=== PATIENT | female | born 1960 | race Caucasian/White ===

== ENCOUNTER 2023-10-01 08:45 | Outpatient (OUT) | payer OTHER, SELFPAY ==
--- NOTE | 2023-10-01 09:06 | MM_ITS ---
Patient Name: KAMAR YEPEZ MR#: [id number] : 1960 Exam Date: 10/01/2023 Ordering Doctor: DR VONDA MORROW M.D. RADIOLOGY REPORT PROCEDURE: MM TOMOSYNTHESIS SCREENING BI COMPARISON: MG MAMM LT UNI W CAD DIG, 10/31/2014. MAMMO POST BIOPSY LEFT, 04/24/2014. MG MAMM CARINA DIAG W CAD DIG, 04/19/2014. MG MAMM CARINA SCRN W CAD DIG, 04/19/2013. INDICATIONS: Screening Calculator Name NCI Breast Cancer Risk Assessment Tool 5 Year Breast Cancer Risk 2.80% Lifetime Breast Cancer Risk 10.30% Personal Breast Cancer No Personal Ovarian Cancer No Treatments None Family Cancers Father with esophageal cancer at age 87; Brother with pancreatic cancer at age 78. LOCATION: [facility] BREAST COMPOSITION: The breasts are heterogeneously dense,which may obscure small masses. FINDINGS: DIAGNOSTIC CATEGORY 2--BENIGN FINDING: RIGHT BREAST: No significant suspicious finding. Scattered benign-appearing lymph nodes are present. No significant change has occurred. LEFT BREAST: No significant suspicious finding. Scattered benign-appearing lymph nodes are present. No significant change has occurred. RECOMMENDATIONS: ROUTINE MAMMOGRAM AND CLINICAL EVALUATION IN 12 MONTHS. PLEASE NOTE: A NORMAL MAMMOGRAM DOES NOT EXCLUDE THE POSSIBILITY OF BREAST CANCER. A CLINICALLY SUSPICIOUS PALPABLE LUMP SHOULD BE BIOPSIED. Dictated by: Alexsander Yepez M.D. on 10/01/2023 at 14:41 Approved by: Alexsander Yepez M.D. on 10/01/2023 at 14:49
== END 2023-10-01 08:46 | disposition home or self-care (01) ==
LOC: MAMMO 08:50
PROVIDERS: Family Provider Internal Medicine; PCP Internal Medicine; Visit Provider Internal Medicine
DX: Z12.31 Encounter for screening mammogram for malignant neoplasm of breast (principal); Z80.8 Family history of malignant neoplasm of other organs or systems
CPT/HCPCS: 77063; 77067

== ENCOUNTER 2023-11-05 07:55 | Outpatient (OUT) | payer OTHER, SELFPAY ==
--- NOTE | 2023-11-05 07:57 | XR_ITS ---
The [address] [address] Patient Name: KAMAR YEPZE MRN: [id number] date: 1960 Sex: F Assigned Patient Location: [facility] Current Patient Location: Accession/Order Number: [id number] Exam Date: 11/05/2023 08:00 Report Date: 11/08/2023 09:28 At the request of: VONDA MORROW Procedure: XR DEXA axial skeleton EXAMINATION: XR DEXA axial skeleton, 11/05/2023 8:00 AM EDT HISTORY: Estrogen deficiency E28.39 COMPARISON: None. TECHNIQUE: Dual-energy X-ray absorptiometry (DEXA) bone density study performed for the axial skeleton. FINDINGS: Bone mineral density AP spine L1-L4 measures 1.015 g/sq cm. T score -1.5. Osteopenia. Lowest bone mineral density left femoral trochanter measures 0.563 g/sq cm. T score -2.5. Osteoporosis XR/XR DEXA axial skeleton IMPRESSION: Osteoporosis. 10 year fracture risk not reported because T score at or below -2.5 Pharmacologic treatment recommendations * No uniform recommendation applies to all patients. Management plans must be individualized. * Consider initiating pharmacologic treatment in postmenopausal women and men >= 50 years of age who have the following: Primary fracture prevention: * T-score <= - 2.5 at the femoral neck, total hip, lumbar spine, 33% radius (some uncertainty with existing data) by DXA. * Low bone mass (osteopenia: T-score between - 1.0 and - 2.5) at the femoral neck or total hip by DXA with a 10-year hip fracture risk >= 3% or a 10-year major osteoporosis-related fracture risk >= 20% (i.e., clinical vertebral, hip, forearm, or proximal humerus) based on the [place]-adapted FRAXregistered model. Secondary fracture prevention: * Fracture of the hip or vertebra regardless of BMD [4, 5]. * Fracture of proximal humerus, pelvis, or distal forearm in persons with low bone mass (osteopenia: T-score between - 1.0 and - 2.5). The decision to treat should be individualized in persons with a fracture of the proximal humerus, pelvis, or distal forearm who do not have osteopenia or low BMD [12, 13]. Héctor MS, Corrine SL, Miguel KL, Ester EM, Howard KG, AJ, Tra ES. The clinician's guide to prevention and treatment of osteoporosis. Osteoporos Int. 2021;33(10):4572-6666. doi: 10.1007/r11079-965-45308-x. Epub 2021Jun 12. Erratum in: Osteoporos Int. 2021Sep 11;: PMID: [id number]; PMCID: [id number]. Electronically authenticated by: GAIL MALDONADO Date: 11/08/2023 09:28
--- OUTSIDE RECORDS SUMMARY | 2023-11-05 07:58 | XMS_ITS | CCD ---
Author Organization [facility] Inform ion Partnership [facility] Care Team Providers Care Insulation Power Unit Tender Name Role Phone VONDA MORROW Attending Unavailable VONDA MORROW Attending Unavailable Encounters Encounter Date Encounter Type Care Provider Facility Start: 10-25-2023 End: 10-25-2023 ambulatory VONDA MORROW Not Available Start: 09-23-2023 End: 09-23-2023 ambulatory VONDA MORROW Not Available Payers Date Payer Category Payer Unknown [id number] 1960 Unknown [id number] 1960 Unknown [id number] Summary Purpose Family History No Family History Records Found Advance Directives No Advanced Directives Records Found Additional Source Comments INFORMATION SOURCE (unrecogn ized section and content) DATE CREATED AUTHOR 10/26/2023 [facility] EPIC FOR RECORDS PERTAINING TO PATIENTS WHO ARE OR HAVE BEEN ENROLLED IN A CHEMICAL DEPENDENCY/SUBSTANCEABUSE PROGRAM, SOME INFORMATION MAY BE OMITTED. This clinical summary was aggregated from multiple sources. Caution should be exercised in using it in the provision of clinical care. This summary normalizes information from multiple sources, and as a consequence, information in this document may materially change the coding, format and clinical context of patient data. In addition, data may be omitted in some cases. CLINICAL DECISIONS SHOULD BE BASED ON THE PRIMARY CLINICAL RECORDS. [facility] provides no warranty or guarantee of the accuracy or completeness of information in this document.
== END 2023-11-05 07:56 | disposition home or self-care (01) ==
LOC: RAD 07:55
PROVIDERS: Family Provider Internal Medicine; PCP Internal Medicine; Visit Provider Internal Medicine
DX: E28.39 Other primary ovarian failure (principal); M81.0 Age-related osteoporosis without current pathological fracture
CPT/HCPCS: 77080